=== PATIENT | male | born 1945 | race Caucasian/White ===

== ENCOUNTER 2023-01-16 15:16 | Emergency (ER) | payer MEDICARE, OTHER ==
[~2023-01-16] VITALS: Ht 188 cm; Wt 123.4 kg
[~2023-01-16 15:16] MED LIST: ACET325 PO; ASCO500 PO; ATOR10 PO; Aspir 8181 MG PO; B Complex #11 EACH PO; Benicar Hct 201 EACH; CEFU50SU PO; CHOL10002; CITA20 PO; DICL25ER TOP; DOC250 PO; FAMO20 PO; GLIM4 PO; GLIP10 PO; IRON150C PO; MECL12.5 PO; METF500 PO; ONDA4ODT MM; TRAM50 PO
[2023-01-16 15:40] VITALS: BP 112/72
[2023-01-16] MEDS ORDERED: Cleocin HCl150 MG PO ×2 (16:08→16:09)
== END 2023-01-16 16:20 | disposition home or self-care (01) ==
LOC: ER 15:16
DX: S91.105A Unspecified open wound of left lesser toe(s) without damage to nail, initial encounter (principal); L97.529 Non-pressure chronic ulcer of other part of left foot with unspecified severity; I10 Essential (primary) hypertension; E11.9 Type 2 diabetes mellitus without complications; J45.909 Unspecified asthma, uncomplicated; Z88.0 Allergy status to penicillin; Z79.84 Long term (current) use of oral hypoglycemic drugs; Z79.82 Long term (current) use of aspirin; X58.XXXA Exposure to other specified factors, initial encounter
CPT/HCPCS: 99283

== ENCOUNTER 2023-04-01 12:15 | Emergency (ER) | payer MEDICARE, OTHER ==
[~2023-04-01] VITALS: Ht 188 cm; Wt 113.4 kg
[~2023-04-01 12:15] MED LIST changes: +Cleocin HCl150 MG PO
[2023-04-01 12:41] VITALS: BP 120/73
== END 2023-04-01 12:45 | disposition home or self-care (01) ==
LOC: ER 12:15
DX: T16.2XXA Foreign body in left ear, initial encounter (principal); E11.9 Type 2 diabetes mellitus without complications; I10 Essential (primary) hypertension; Z88.0 Allergy status to penicillin; Z79.84 Long term (current) use of oral hypoglycemic drugs; Z79.82 Long term (current) use of aspirin; Z79.899 Other long term (current) drug therapy; W45.8XXA Other foreign body or object entering through skin, initial encounter
CPT/HCPCS: 69200; 99282-25

== ENCOUNTER 2023-08-16 12:04 | Day surgery (SDC) | payer OTHER ==
[~2023-08-16] VITALS: Ht 188 cm; Wt 125.4 kg
[2023-08-16] MEDS ORDERED: INSULANI (12:45)
[2023-08-16] MEDS ORDERED: NOVOLOG100 UNIT/3 SQ (12:47)
[2023-08-16] MEDS ORDERED: TRELEGY ELLIPT1 EACH IH (12:47)
[2023-08-16 13:55] VITALS: BP 135/70
== END 2023-08-16 14:12 | disposition home or self-care (01) ==
LOC: ORSCSDS 12:04
PROVIDERS: Ophthalmology
PROC: 08RJ3JZ Replacement of Right Lens with Synthetic Substitute, Percutaneous Approach (ICD-10-PCS; principal; 2023-08-16 14:30)
DX: E11.36 Type 2 diabetes mellitus with diabetic cataract (principal); H25.13 Age-related nuclear cataract, bilateral; H52.201 Unspecified astigmatism, right eye; G47.33 Obstructive sleep apnea (adult) (pediatric); Z79.4 Long term (current) use of insulin; Z79.84 Long term (current) use of oral hypoglycemic drugs; Z79.899 Other long term (current) drug therapy; Z68.35 Body mass index [BMI] 35.0-35.9, adult
CPT/HCPCS: 82947; J2250; J3010; J3301; J7040; V2632

== ENCOUNTER 2023-08-23 11:30 | Day surgery (SDC) | payer OTHER ==
[~2023-08-23] VITALS: Ht 188 cm; Wt 125.2 kg
[~2023-08-23 11:30] MED LIST changes: +INSULANI; +NOVOLOG100 UNIT/3 SQ; +TRELEGY ELLIPT1 EACH IH
--- NOTE | 2023-08-23 13:58 | NUR ---
08/23/23 1358 Karly Hoyt IN AT 1343 [place] IN AT 1344 CALL LIGHT AT BEDSIDE
[2023-08-23] MEDS ORDERED: TRULICITY0.75 MG/01 SQ (14:22)
[2023-08-23 15:02] VITALS: BP 128/84
== END 2023-08-23 15:30 | disposition home or self-care (01) ==
LOC: ORSCSDS 11:30
PROVIDERS: Ophthalmology
PROC: 08RK3JZ Replacement of Left Lens with Synthetic Substitute, Percutaneous Approach (ICD-10-PCS; principal; 2023-08-23 14:30)
DX: E11.36 Type 2 diabetes mellitus with diabetic cataract (principal); H25.12 Age-related nuclear cataract, left eye; H52.202 Unspecified astigmatism, left eye; I10 Essential (primary) hypertension; J44.9 Chronic obstructive pulmonary disease, unspecified; Z79.85 Long-term (current) use of injectable non-insulin antidiabetic drugs; Z79.4 Long term (current) use of insulin; Z79.899 Other long term (current) drug therapy
CPT/HCPCS: 82947; J2250; J3301; J7040; V2632

== ENCOUNTER → 2023-11-27 | Outpatient (CLI) | payer OTHER ==
[~2023-11-27] MED LIST changes: +ACET500 PO; +CIPR500 PO; +CIPROFLOX-DEXA7.5 ML; +Ibuprofen600 MG PO; +TRULICITY0.75 MG/01 SQ
[2023-11-27 11:35] LABS: BASOPHILS ABSOLUTE AUTO 0.04 K/mm3 (0.00-0.23); BASOPHILS PERCENT AUTO 1 % (0-2); EOSINOPHILS PERCENT AUTO 1 % (0-6); Hematocrit 44.7 % (37.0-53.0); Hemoglobin 14.9 g/dL (13.5-17.5); IMMATURE GRAN ABSOLUTE AUTO 0.02 K/mm3 (0.00-0.10); IMMATURE GRAN PERCENT AUTO 0 % (0-1); LYMPHOCYTES ABSOLUTE AUTO 2.64 K/mm3 (0.84-5.20); LYMPHOCYTES PERCENT AUTO 35 % (21-46); MONOCYTES ABSOLUTE AUTO 0.65 K/mm3 (0.16-1.47); MONOCYTES PERCENT AUTO 9 % (4-13); Mean Corpuscular HGB 28.8 pg (26.0-34.0); Mean Corpuscular HGB Conc 33.3 g/dL (31.5-36.5); Mean Corpuscular Volume 87 fL (80-100); Mean Platelet Volume 11.1 fL (9.1-12.4); NEUTROPHILS ABSOLUTE AUTO 4.15 K/mm3 (1.96-9.15); NEUTROPHILS PERCENT AUTO 55 % (41-73); Platelet Count 342 K/mm3 (150-400); RDW Coefficient Variation 11.8 % (11.7-14.2); RDW Standard Deviation 37.6 fL (35.1-46.3); Red Blood Cell Count 5.17 M/mm3 (4.30-5.90)
[2023-11-27 11:38] LABS: Albumin, Blood 3.4 g/dL (3.4-5.0); Albumin/Globulin Ratio 0.9 (0.8-1.8); Bilirubin, Total 0.6 mg/dL (0.1-1.0); Bun/Creatinine Ratio 25.5 (12.0-20.0); Calcium, Blood 9.6 mg/dL (8.5-10.1); Creatinine, Blood 1.1 mg/dL (0.60-1.20); Globulin, Blood 3.9 g/dL (2.2-4.0); Potassium, Blood 4.5 mmol/L (3.5-5.5); Total Protein, Blood 7.3 g/dL (6.4-8.2)
[2023-11-27 15:20] LABS: Creatinine, Urine Random 65.7 mg/dL (27.00-270.00)
[2023-11-27 15:23] LABS: Microalb/Creat Ratio UR, Rand 143.531 mg/g (0.000-30.000); Microalbumin, Random Urine 94.3 mg/L (0.000-20.000)
== END ==
LOC: LAB SHORT 08:30 → LAB 08:30
PROVIDERS: Nurse Practitioner Family
DX: E11.65 Type 2 diabetes mellitus with hyperglycemia (principal)
CPT/HCPCS: 80053; 82043; 82570; 83036; 85025

== ENCOUNTER → 2024-02-19 | Outpatient (CLI) | payer OTHER ==
[2024-02-19 17:15] LABS: BASOPHILS ABSOLUTE AUTO 0.04 K/mm3 (0.00-0.23); BASOPHILS PERCENT AUTO 1 % (0-2); EOSINOPHILS ABSOLUTE AUTO 0.04 K/mm3 (0.00-0.68); EOSINOPHILS PERCENT AUTO 1 % (0-6); Hematocrit 48.2 % (37.0-53.0); Hemoglobin 15.2 g/dL (13.5-17.5); IMMATURE GRAN ABSOLUTE AUTO 0.02 K/mm3 (0.00-0.10); IMMATURE GRAN PERCENT AUTO 0 % (0-1); LYMPHOCYTES ABSOLUTE AUTO 1.58 K/mm3 (0.84-5.20); LYMPHOCYTES PERCENT AUTO 26 % (21-46); MONOCYTES ABSOLUTE AUTO 0.52 K/mm3 (0.16-1.47); MONOCYTES PERCENT AUTO 9 % (4-13); Mean Corpuscular HGB 28.4 pg (26.0-34.0); Mean Corpuscular HGB Conc 31.5 g/dL (31.5-36.5); Mean Corpuscular Volume 90 fL (80-100); Mean Platelet Volume 11.4 fL (9.1-12.4); NEUTROPHILS ABSOLUTE AUTO 3.89 K/mm3 (1.96-9.15); NEUTROPHILS PERCENT AUTO 64 % (41-73); Platelet Count 301 K/mm3 (150-400); RDW Standard Deviation 39.6 fL (35.1-46.3); Red Blood Cell Count 5.35 M/mm3 (4.30-5.90); White Blood Cell Count 6.09 K/mm3 (4.00-11.30)
[2024-02-19 17:33] LABS: C-Reactive Protein, High Sens. 4.39 mg/dL (0.000-3.000)
[2024-02-19 18:05] LABS: Albumin, Blood 3.7 g/dL (3.4-5.0); Albumin/Globulin Ratio 0.9 (0.8-1.8); Bilirubin, Total 0.6 mg/dL (0.1-1.0); Bun/Creatinine Ratio 20.2 (12.0-20.0); Calcium, Blood 9.1 mg/dL (8.5-10.1); Creatinine, Blood 1.29 mg/dL (0.60-1.20); Globulin, Blood 4.1 g/dL (2.2-4.0); Potassium, Blood 4.4 mmol/L (3.5-5.5); Total Protein, Blood 7.8 g/dL (6.4-8.2)
== END ==
LOC: LAB 16:03 → LAB SHORT 16:03
PROVIDERS: Nurse Practitioner Family
DX: G31.84 Mild cognitive impairment of uncertain or unknown etiology (principal); E11.9 Type 2 diabetes mellitus without complications
CPT/HCPCS: 80053; 82607; 82746; 83036; 85025; 86141